=== PATIENT | female | born 1960 | race Caucasian/White ===

== ENCOUNTER → 2018-09-09 | Outpatient (CLI) | payer OTHER ==
[~2018-09-09] VITALS: Ht 162.6 cm; Wt 78.0 kg
[~2018-09-09] MED LIST: BICARSIM80 MG PO; ESTRACE0.5 MG; ESTRADERM1 EACH; HYDROCHLOROTHIA25 M2 PO; HYDROCODON-ACE1 EAC7 PO; NORVASC5 MG PO; POTASSIUM20 PO; TRAMADOL 50 MG50 MG PO
[2018-09-09 07:53] VITALS: BP 145/90
--- NOTE | 2018-09-09 08:13 | NUR ---
Pain Clinic Assessment: 1. History of Osteoarthritis: * Not Applicable History of Rheumatoid Arthritis: Not Applicable 2. Height: 5 ft. 4 in. 162.6 cm. Weight: 172.0 lb. oz. 78.019 kg. Patient's BMI: 29.5 3. Vital Signs: BP: 145/90 Pulse: 84 Resp: 16 Temp: 02 Sat: 95 ECG Mon: 4. Pain Intensity: 5 5. Fall Risk: Dizziness: N Needs help standing or walking: N Fallen in the last 3 months: N Fall risk comments: 6. Patient on Blood Thinner: None 7. History of Hypertension: Y 8. Opioid Therapy greater than 6 weeks: N Opiate Contract Signed: 9. Risk Assessment Tool Provided: LOW RISK 10. Functional Assessment Tool: 11. Recreational Drug Use: Unknown Drug Type: Tobacco Use: Never Smoker Tobacco Type: Amount or Packs/day: How Many Years: Alcohol Use: No Frequency: Quant:
--- NOTE | 2018-09-10 08:12 | HPC ---
[facility] [place] [address] PAIN MANAGEMENT CONSULTATION Name: DAWN HANKINS [facility] [id number] Admission: 09/09/18 ������������������ Attend Phys: Roderick Hahn DO Discharge: ������������������ Date of : 56 Report #: [id number] THIS REPORT FOR: //name// CC: Roderick Martin DATE OF SERVICE: 09/09/2018 CHIEF COMPLAINT: Neck pain, left upper extremity pain with paresthesias. HISTORY OF PRESENT ILLNESS: As you know, the patient is a very pleasant 57-year-old female with recurrent cervical radiculopathy involving the left neck radiating on the C8 dermatomal distribution into the left hand involving the fourth and fifth digits as well as typical distribution of the C8 dermatome. The patient denies any new injury or trauma that may have led to symptom reoccurrence. We saw the patient in consultation in 04/2013 for similar findings. She underwent a cervical epidural injection with excellent benefit noting year's worth of improvement in symptoms. She states her pain began to return approximately 2 months ago. She has undergone 1.5 months of physician-directed home physical therapy. She has tried wqbb-xtk-mqwpgfd medications such as Tylenol, topical creams, utilizing heat pads and cold packs with some improvement. Unfortunately, her pain did not improve significantly. She describes the pain as numbness, tingling, heavy and aching, places current pain score 5/10. Movement to the left as well as bending her neck to the left exacerbates symptoms. There does not appear to be any intrinsic shoulder pathology. She is able to move her shoulder in all directions, full range of motion. She returns today in followup visit to discuss possibility of treating cervical radiculopathy involving left upper extremity in a C8 dermatomal distribution. PAST MEDICAL HISTORY: 1. Postmenopausal symptoms. 2. Hypertension. PAST SURGICAL HISTORY: Uterine ablation in 2004, hysterectomy in 2010, radial keratotomy in 1991. SOCIAL HISTORY: The patient denies tobacco, IV or illicit drug use. Admits to occasional alcohol beverage. She is working, not receiving workmen's compensation nor is she trying to obtain disability benefits. She is unaccompanied at today's visit. REVIEW OF SYSTEMS: Positive for neck pain, left upper extremity pain with paresthesias, hot flashes, hypertension. All other review of systems negative per 12-point review of systems other than those listed in history of present illness. [address] [address] PAIN MANAGEMENT CONSULTATION Name: DAWN HANKINS Room #: REG CL Kimberlee#: [id number] Admission: 09/09/18 ������������������ Attend Phys: Roderick Hahn DO Discharge: ������������������ Date of : 56 Report #: [id number] Pain impact score 45 out of 70 indicating uflzvljb-gz-kffxgs interference of daily activities secondary to pain. IMAGING: There is no new imaging available. ALLERGIES: ERYTHROMYCIN. CURRENT MEDICATIONS: Potassium chloride 20 mEq once a day, amlodipine 5 mg once a day, hydrochlorothiazide 25 mg once a day. PHYSICAL EXAMINATION: VITAL SIGNS: Blood pressure 145/90, pulse 84, respiratory rate 16 and unlabored. The patient is 95% on room air. Height 5 feet 4 inches tall, weight 172 pounds, BMI calculated 29.5. GENERAL: Well-developed, well-nourished, well-hydrated, 57-year-old female, appearing stated age. Pain is rated today at around 5/10. HEENT: Normocephalic, atraumatic. Pupils equal, round, reactive to light. Extraocular muscles are intact. Sclerae nonicteric without injection. NEUROLOGIC: Cranial nerves 2 through 12 are grossly intact. Speech fluent. The patient deemed an excellent historian. LUNGS: Clear. No wheeze, rhonchi or rales. CARDIOVASCULAR: Regular. No appreciable gallop or rub. ABDOMEN: Soft, nontender, nondistended. EXTREMITIES: Show no clubbing, no cyanosis, no edema. MUSCULOSKELETAL: Upper extremity strength symmetrical 5/5, intact to light touch from C5 through T1 dermatomes. Deep tendon reflexes are symmetrical at biceps, brachialis and triceps. Spurling's test positive on the left, negative right. Cervical provocation testing is met with mypb-sm-jvnqxjka restriction of motion to the left with pain generation. Negative to the right. Lateral flexion to the left also causes intensification of pain, lateral flexion to the right with cervical spine. No intensification of pain. Muscle bulk and tone equal and symmetrical in upper extremities. ASSESSMENT: 1. Cervical radiculopathy. 2. Cervical spondylosis with radiculopathy. PLAN: 1. Based on today's physical exam and the history the patient has provided, the description the patient uses in regards to pain as well as location of symptoms, the likely source of the patient's pain is cervical radiculopathy. The distribution of the patient is experiencing today is in on what appears to be the C8 dermatome, which is very similar to her presentation in 04/2013. The patient denies injury or trauma or any changes in medical history that may have led to symptom reoccurrence. She states she has been more active of late, doing [facility] [address] [facility] [place] [address] PAIN MANAGEMENT CONSULTATION Name: DAWN HANKINS Room #: REG 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 She has trialled yfcb-ioq-khqzsuz medications in form of Tylenol and topical creams. She has trialled heat and cold compresses, rest, relaxation and even 1.5 months of physician-directed home therapy, but has not noted improvement in symptoms. Due to lack of improvement from a conservative standpoint, patient was referred to our clinic to discuss options for treatment for cervical radiculopathy. We discussed physical therapy, stretching exercises, core strengthening, though this has failed to date with the patient doing these on a daily basis at home. We discussed medication management, trialing neuropathic pain medications and a low dose opioid for pain control. We discussed cervical epidural injections under fluoroscopic guidance, spinal cord stimulator therapy and surgical options. After reviewing risks and benefits of all proposed treatment options, the patient chose to begin with preapproval for the cervical epidural injection, which worked significantly well from 2013 until just recently and to begin medication management. 2. The patient will be provided a prescription of tramadol 50 mg dose, 1 tab p.o. q. 8 hours p.r.n. for pain. I have given the patient #60 tablets. She will take this medication as directed. She is to watch for side effects of sleepiness, disorientation, confusion, mental slowing and constipation with their use. 3. We have provided the patient with samples of Lyrica 50 mg tablet, 1 tab p.o. at bedtime. She will take this for 7 days no improvement in symptoms, no side effects of sleepiness, disorientation, confusion, mental slowing. She then increases to 100 mg. She will watch for improvement in symptoms versus side effects. If she has significant side effects, discontinue immediately. We have provided the patient with samples today. 4. We will begin the authorization process for the patient to undergo cervical epidural injection under fluoroscopic guidance. Authorization could take anywhere from 4-7 working days. We will begin this process immediately. Once we have achieved this authorization, we will be contacting the patient to return to undergo first in this series of cervical epidural injections. We will begin this process immediately, contact the patient and have her return to undergo the procedure once we have achieved this preauthorization for cervical epidural injection. 5. We wish to thank the referring physician for the opportunity to see this patient in consultation. We will keep you apprised of her response to treatment as we address cervical radiculopathy involving the C8 [place] [address] PAIN MANAGEMENT CONSULTATION Name: DAWN HANKINS Room #: REG MARILIA Mohan#: [id number] Admission: 09/09/18 ������������������ Attend Phys: Roderick Hahn DO Discharge: ������������������ Date of : 56 Report #: [id number] Again, we wish to thank you for the opportunity to see this patient in consultation. ��������������������������������������������� <ELECTRONICALLY SIGNED> ���������������������������������������� By: Roderick Hahn DO ��������������������������������������������� 09/10/18 0812 0843 0925 Roderick Hahn DO /nt
== END ==
LOC: PAIN 08:00
DX: M47.22 Other spondylosis with radiculopathy, cervical region (principal); Z79.899 Other long term (current) drug therapy

== ENCOUNTER → 2018-09-16 | Outpatient (CLI) | payer OTHER ==
[~2018-09-16] VITALS: Ht 162.6 cm; Wt 78.0 kg
--- NOTE | ~2018-09-16 | HPC ---
[facility] [address] [place] [address] PAIN MANAGEMENT CONSULTATION Name: DAWN HANKINS Room #: REG [facility].#: [id number] Admission: 09/16/18 ������������������ Attend Phys: Roderick Hahn DO Discharge: ������������������ Date of : 56 Report #: [id number] THIS REPORT FOR: //name// CC: Roderick Martin MD DATE OF SERVICE: 09/16/2018 REFERRING PHYSICIAN: Garth Martin M.D. CHIEF COMPLAINT: Neck pain and left upper extremity pain with paresthesias. HISTORY OF PRESENT ILLNESS: As you know, the patient is a very pleasant 57-year-old female who has returned today in followup visit having received precertification to undergo cervical epidural injection under fluoroscopic guidance to address cervical radiculopathy involving the neck and left upper extremity. The patient is placing pain today at around 5/10. She describes the pain as numbness, tingling and heavy sensation with aching. She indicates pain is exacerbated with movement, certain positioning, improves with repositioning and previous cervical epidural injections. The patient's most recent cervical epidural injection was performed in 2013 with good and prolonged benefit. She returns today in followup visit having received precertification to undergo next in the series of cervical epidural injections to address recurrent cervical radicular symptoms. She denies new injury or trauma. ALLERGIES: ERYTHROMYCIN. CURRENT MEDICATIONS: Potassium chloride 20 mEq p.o. every day, amlodipine 5 mg per day and hydrochlorothiazide 25 mg per day. SOCIAL HISTORY: The patient denies tobacco, alcohol or IV or illicit drug use. She is working, not receiving workmen's compensation nor is trying to obtain disability benefits. Unaccompanied today. IMAGING DATA: No new imaging available. PHYSICAL EXAMINATION: VITAL SIGNS: Blood pressure 143/80, pulse is 72 and respiratory rate 18 and unlabored. The patient is 99% on room air. Height 5 feet 4 inches tall, weight 172 pounds and BMI calculated 29.5. GENERAL: Well-developed, well-nourished and well-hydrated 57-year-old female appearing stated age, pain is rated at 5/10. HEENT: Normocephalic and atraumatic. Pupils equal, round and reactive to light. EXTREMITIES: Show no clubbing, no cyanosis and no edema. [facility] [address] [place] [address] PAIN MANAGEMENT CONSULTATION Name: DAWN HANKINS Room #: REG [facility].[place].#: [id number] Admission: 09/16/18 ������������������ Attend Phys: Roderick Hahn DO Discharge: ������������������ Date of : 56 Report #: [id number] MUSCULOSKELETAL: Upper extremity strength is symmetrical 5/5. Muscle bulk and tone equal and symmetrical when comparing left upper extremity to right. Spurling's test positive left, negative right. Cervical provocation testing is met with increased pain with lateral flexion and rotation to the left. ASSESSMENT: 1. Cervical radiculopathy. 2. Cervical spondylosis with radiculopathy. PLAN: 1. The patient has returned today in followup visit having received precertification to undergo cervical epidural injection under fluoroscopic guidance. The patient and I did discuss at length the risks and benefits of the procedure. These risks include but are not necessarily limited to bleeding, bruising, infection, worsening pain, no relief of pain, also risk of temporary or permanent muscle weakness, temporary or permanent nerve damage, possible paralysis, post-dural puncture headache and . The patient states understood and wished to proceed. 2. No medication changes made at today's visit. The patient will continue current medical therapy as previously prescribed. 3. We will see the patient back in followup visit on an as needed basis for possible next in the series of cervical epidural injections under fluoroscopic guidance. PROCEDURE NOTE DESCRIPTION OF PROCEDURE: C7-T1 cervical epidural steroid injection under fluoroscopic guidance. After obtaining written consent, the patient was taken back to fluoroscopy suite, placed in prone position with separate pillows under chest and forehead to decrease cervical lordosis. Skin overlying cervical area then prepped and draped in aseptic fashion. C7-T1 cervical interspace identified by AP fluoroscopy. Skin and subcutaneous tissue overlying target site of injection anesthetized with 3 mL of 1% lidocaine. A 20-gauge 3-1/2 inch Tuohy needle advanced under fluoroscopic guidance towards the epidural space using a midline approach. Epidural space identified using loss of resistance to air technique. After negative aspiration for heme or cerebrospinal fluid, 1 mL of Omnipaque injected. A cervical epidurogram confirmed using both AP and oblique fluoroscopy. After negative aspiration for heme or cerebrospinal fluid, 5 mL of a solution containing 2 mL 40 mg per mL, 80 mg total triamcinolone and 3 mL of lidocaine 1% injected slowly. Needle retracted approximately half way, flushed with 1 mL of 1% lidocaine and then removed. Sterile bandage was placed over injection site. No new motor deficits present in the upper extremities following procedure. [facility] [address] [place] [address] PAIN MANAGEMENT CONSULTATION Name: DAWN HANKINS Room #: REG [facility]#: [id number] Admission: 09/16/18 ������������������ Attend Phys: Roderick Hahn DO Discharge: ������������������ Date of : 56 Report #: [id number] The patient tolerated procedure well, carefully escorted to recovery room in stable condition. No apparent complications. After meeting discharge criteria, the patient discharged home. ��������������������������������������������� ���������������������������������������� By: ��������������������������������������������� 0757 0815 Roderick Hahn DO /nt
[2018-09-16 07:43] VITALS: BP 143/80
--- NOTE | 2018-09-16 07:45 | NUR ---
Pain Clinic Assessment: 1. History of Osteoarthritis: * Not Applicable History of Rheumatoid Arthritis: Not Applicable 2. Height: 5 ft. 4 in. 162.6 cm. Weight: 172.0 lb. oz. 78.019 kg. Patient's BMI: 29.5 3. Vital Signs: BP: 143/80 Pulse: 72 Resp: 18 Temp: 02 Sat: 99 ECG Mon: 4. Pain Intensity: 5 5. Fall Risk: Dizziness: N Needs help standing or walking: N Fallen in the last 3 months: N Fall risk comments: 6. Patient on Blood Thinner: None 7. History of Hypertension: Y 8. Opioid Therapy greater than 6 weeks: N Opiate Contract Signed: 9. Risk Assessment Tool Provided: LOW RISK 10. Functional Assessment Tool: 11. Recreational Drug Use: Unknown Drug Type: Tobacco Use: Never Smoker Tobacco Type: Amount or Packs/day: How Many Years: Alcohol Use: No Frequency: Quant:
== END | disposition home or self-care (01) ==
LOC: PAIN 07:18
DX: M47.22 Other spondylosis with radiculopathy, cervical region (principal); G89.29 Other chronic pain; Z88.8 Allergy status to other drugs, medicaments and biological substances; Z79.899 Other long term (current) drug therapy; Z98.890 Other specified postprocedural states

== ENCOUNTER → 2018-12-03 | Outpatient (CLI) | payer OTHER ==
[~2018-12-03] VITALS: Ht 162.6 cm; Wt 78.5 kg
[2018-12-03 07:46] VITALS: BP 149/82
--- NOTE | 2018-12-03 07:49 | NUR ---
Pain Clinic Assessment: 1. History of Osteoarthritis: * Not Applicable History of Rheumatoid Arthritis: Not Applicable 2. Height: 5 ft. 4 in. 162.6 cm. Weight: 173.0 lb. oz. 78.472 kg. Patient's BMI: 29.7 3. Vital Signs: BP: 149/82 Pulse: 65 Resp: 16 Temp: 02 Sat: 99 ECG Mon: 4. Pain Intensity: 4 5. Fall Risk: Dizziness: N Needs help standing or walking: N Fallen in the last 3 months: N Fall risk comments: 6. Patient on Blood Thinner: None 7. History of Hypertension: Y 8. Opioid Therapy greater than 6 weeks: N Opiate Contract Signed: 9. Risk Assessment Tool Provided: LOW RISK 10. Functional Assessment Tool: 11. Recreational Drug Use: Unknown Drug Type: Tobacco Use: Never Smoker Tobacco Type: Amount or Packs/day: How Many Years: Alcohol Use: No Frequency: Quant:
--- NOTE | 2018-12-10 07:46 | HPC ---
[facility] [address] [place] [address] PAIN MANAGEMENT CONSULTATION Name: DAWN HANKINS Room #: REG [facility] M..#: [id number] Admission: 12/03/18 Attend Phys: Roderick Hahn DO Discharge: Date of : 56 Report #: [id number] THIS REPORT FOR: //name// CC: Roderick Martin DATE OF SERVICE: 12/03/2018 CHIEF COMPLAINT: Neck pain, left upper extremity pain with paresthesias. HISTORY OF PRESENT ILLNESS: As you know, the patient is a very pleasant 57-year-old female who returns today in followup visit with recurrent cervical radiculopathy. She is placing pain score around 4/10. She describes the pain as numbness, tingling and heavy aching sensation. Exacerbated with movement, certain positioning, and arm positioning, also with leaving her arm in an anatomical position at her side causes intensification of left arm pain. She returns today in followup visit to undergo next in the series of cervical epidural injections. She reports previous cervical epidural injection provided up to 50% improvement in overall pain. She returns with no injury, no trauma, requesting to undergo next in the series of cervical epidural injections. ALLERGIES: ERYTHROMYCIN. CURRENT MEDICATIONS: Tramadol 50 mg t.i.d. p.r.n., potassium chloride 20 mEq p.o. daily, amlodipine 5 mg per day, hydrochlorothiazide 25 mg per day. SOCIAL HISTORY: The patient denies tobacco, alcohol or IV illicit drug use. She is working, not receiving workmen's compensation, unaccompanied today. IMAGING: No new imaging is available. PHYSICAL EXAMINATION: VITAL SIGNS: Blood pressure is 149/82, pulse is 65, respiratory rate 16 and unlabored. The patient is 99% on room air. Height 5 feet 4 inches tall, weight 173 pounds, BMI calculated 29.7. GENERAL: Well-developed, well-nourished, well-hydrated 57-year-old female appearing stated age, pain is rated at around 4/10. HEENT: Normocephalic, atraumatic. Pupils are equal, round, reactive to light. EXTREMITIES: Show no clubbing, no cyanosis, and no edema. MUSCULOSKELETAL: Upper extremity strength remains symmetrical 5/5. Muscle bulk and tone equal and symmetrical in comparing left upper extremity to right. Spurling's test positive left. ASSESSMENT: 1. Cervical radiculopathy. [address] [address] PAIN MANAGEMENT CONSULTATION Name: DAWN HANKINS Room #: REG MARILIA GalloJose#: [id number] Admission: 12/03/18 Attend Phys: Roderick Hahn DO Discharge: Date of : 56 Report #: [id number] 2. Cervical spondylosis with radiculopathy. PLAN: 1. The patient returns today in followup visit, having reported greater than 50% improvement in overall pain with previous cervical epidural injection. She returns today in followup visit to undergo next in the series of cervical epidural injections in hopes of improving pain. She has been advised risks and benefits of the procedure, states understood, and wished to proceed. 2. No medication changes made at today's visit. The patient will continue current medical therapy as previously prescribed. 3. We will see the patient back in followup visit on an as needed basis for possible next in the series of cervical epidural injections. We did discuss that if she does not note significant improvement with today's cervical epidural injection, further imaging may be necessary. We would have to have the patient undergo a cervical MRI to obtain the information necessary if surgical options may be present. X-ray imaging will not provide the patient the information we need for further treatment. We will discuss this at followup visit. PROCEDURE NOTE DESCRIPTION OF PROCEDURE: C7-T1 cervical epidural steroid injection under fluoroscopic guidance. After obtaining written consent, the patient was taken back to fluoroscopy suite, placed in prone position with separate pillows under chest and forehead to decrease cervical lordosis. Skin overlying cervical area prepped and draped in aseptic fashion. The C7-T1 cervical interspace identified by AP fluoroscopy. Skin and subcutaneous tissue overlying target site of injection anesthetized with 3 mL of 1% lidocaine. A 20-gauge 3-1/2 inch Tuohy needle advanced under fluoroscopic guidance towards the epidural space using a midline approach. Epidural space identified using loss of resistance to air technique. After negative aspiration for heme or cerebrospinal fluid, 1 mL of Omnipaque injected. Cervical epidurogram confirmed using both AP and lateral fluoroscopy. After negative aspiration for heme or cerebrospinal fluid, 5 mL of a solution containing 2 mL 40 mg per mL, 80 mg total triamcinolone along with 3 mL of lidocaine 1% injected slowly. Needle then retracted approximately half way, flushed with 1 mL of 1% lidocaine and removed. Sterile bandage placed over injection site. No new motor deficits present in the upper extremity following procedure. The patient tolerated procedure well, carefully escorted to recovery room in [address] [address] PAIN MANAGEMENT CONSULTATION Name: DAWN HANKINS Room #: REG [facility]#: [id number] Admission: 12/03/18 Attend Phys: Roderick Hahn DO Discharge: Date of : 56 Report #: [id number] stable condition. No apparent complications. After meeting discharge criteria, the patient discharged home. <ELECTRONICALLY SIGNED> By: Roderick Hahn DO 12/10/18 0746 0826 0055 Roderick Hahn DO /nt
== END | disposition home or self-care (01) ==
LOC: PAIN 06:44
DX: M47.22 Other spondylosis with radiculopathy, cervical region (principal); G89.29 Other chronic pain; Z98.890 Other specified postprocedural states; Z88.8 Allergy status to other drugs, medicaments and biological substances; Z79.899 Other long term (current) drug therapy

== ENCOUNTER → 2019-12-10 | Outpatient (CLI) | payer OTHER ==
[~2019-12-10] VITALS: Ht 162.6 cm; Wt 81.8 kg
--- NOTE | ~2019-12-10 | HPC ---
[facility] [address] [place] [address] PAIN MANAGEMENT CONSULTATION Name: DAWN HANKINS Room #: REG [facility].#: [id number] Admission: 12/10/19 Attend Phys: Roderick Hahn DO Discharge: Date of : 56 Report #: [id number] CC: Roderick Martin DATE OF SERVICE: 12/10/2019 CHIEF COMPLAINT: Neck pain, bilateral upper extremity pain with paresthesias, left greater than right. HISTORY OF PRESENT ILLNESS: As you know, the patient is a very pleasant 59-year-old female who returns today in followup visit to undergo cervical epidural injection under fluoroscopic guidance to address recurrent cervical radicular symptoms. The patient reports previous cervical epidural injection gave 80% improvement in overall pain lasting for months. Unfortunately, her symptoms have begun to return. There has been no inciting injury or trauma. She returns today to undergo cervical epidural injection under fluoroscopic guidance to address cervical radiculopathy. ALLERGIES: ERYTHROMYCIN. CURRENT MEDICATIONS: Potassium chloride 20 mEq p.o. daily, amlodipine 5 mg per day, hydrochlorothiazide 25 mg per day. SOCIAL HISTORY: The patient denies tobacco, alcohol, IV or illicit drug use. She is working, not receiving workmen's compensation, unaccompanied today. IMAGING: No new imaging available. PHYSICAL EXAMINATION: VITAL SIGNS: Blood pressure 129/65, pulse 66, respiratory rate 16 and unlabored. The patient is 98% on room air. Height 5 feet 4 inches tall, weight 180.4 pounds, BMI calculated 31.0. GENERAL: Well-developed, well-nourished, well-hydrated 58-year-old female appearing stated age. Pain is rated anywhere from 4-7/10. HEENT: Normocephalic, atraumatic. Pupils equal, round and reactive. Speech is fluent. EXTREMITIES: Show no clubbing, no cyanosis. No appreciable edema. MUSCULOSKELETAL: Upper extremity strength equal and symmetrical 5/5. Muscle bulk and tone is symmetrical comparing left upper extremity to right. Spurling's test positive left, negative right. ASSESSMENT: 1. Cervical radiculopathy. 2. Cervical spondylosis with radiculopathy. 3. Chronic intractable pain. PLAN: 1. The patient returns today in followup visit requesting to undergo cervical epidural injection under fluoroscopic guidance to address cervical radicular symptoms. The patient and I discussed at length today the risks and the benefits of a cervical epidural injection. She states she understood and wished to proceed. 2. I would recommend the patient undergo further imaging of the cervical spine. It has been a long time since imaging has been done of her cervical region and this was only x-ray imaging. I do feel that further evaluation with MRI would be appropriate. I have written for MRI of the cervical spine without contrast to be obtained at her earliest convenience. We do recommend a delay of at least 2 weeks after the epidural injection, so that the medications injected will dissipate and not show on the MRI. She is agreeable. She was given this prescription to fill in approximately 2 weeks. Once this imaging has been obtained, we will contact the patient with the results. 3. No medication changes made at today's visit. The patient will continue current medical therapy as prior prescribed. 4. We will see the patient back in followup visit on an as needed basis for possible next in the series of cervical epidural injections. We are hopeful she will see good and prolonged benefit with today's procedure. PROCEDURE NOTE DESCRIPTION OF PROCEDURE: C7-T1 cervical epidural steroid injection under fluoroscopic guidance. After obtaining written consent, the patient was taken back to fluoroscopy suite, placed in prone position with separate pillows under chest and forehead to decrease cervical lordosis. Skin overlying the cervical area prepped and draped in aseptic fashion. C7-T1 cervical interspace identified by AP fluoroscopy. Skin and subcutaneous tissue overlying the target site of injection anesthetized with 3 mL of 1% lidocaine. A 20-gauge 3-1/2 inch Tuohy needle advanced under fluoroscopic guidance towards the epidural space using a left paramedian approach. Epidural space identified using loss of resistance to air technique. After negative aspiration for heme or cerebrospinal fluid, 1 mL of Omnipaque injected. A cervical epidurogram confirmed using both AP and oblique fluoroscopy. After negative aspiration for heme or cerebrospinal fluid, 5 mL of a solution containing 2 mL 40 mg per mL, 80 mg total triamcinolone along with 3 mL of lidocaine 1% injected slowly. Needle retracted senior living, flushed with 1 mL of 1% lidocaine and then removed. Sterile bandage placed over injection site. No new motor deficits present in the upper extremities following procedure. The patient tolerated the procedure well, carefully escorted to recovery room in stable condition. No apparent complications. After meeting discharge criteria, the patient discharged home. By: [id number] Roderick Hahn DO /bryan
[2019-12-10 14:59] VITALS: BP 129/65
--- NOTE | 2019-12-10 15:11 | NUR ---
Pain Clinic Assessment: 1. History of Osteoarthritis: * Not Applicable History of Rheumatoid Arthritis: Not Applicable 2. Height: 5 ft. 4 in. 162.6 cm. Weight: 180.4 lb. oz. 81.829 kg. Patient's BMI: 31.0 3. Vital Signs: BP: 129/65 Pulse: 66 Resp: 16 Temp: 02 Sat: 98 ECG Mon: 4. Pain Intensity: 4 AVG 6-7 WHEN BAD 5. Fall Risk: Dizziness: N Needs help standing or walking: N Fallen in the last 3 months: N Fall risk comments: 6. Patient on Blood Thinner: None 7. History of Hypertension: Y 8. Opioid Therapy greater than 6 weeks: N Opiate Contract Signed: 9. Risk Assessment Tool Provided: LOW RISK 10. Functional Assessment Tool: 11. Recreational Drug Use: Unknown Drug Type: Tobacco Use: Never Smoker Tobacco Type: Amount or Packs/day: How Many Years: Alcohol Use: No Frequency: Quant:
== END | disposition home or self-care (01) ==
LOC: PAIN 06:45
PROVIDERS: ATTEND Anesthesiology Pain Medicine
DX: M47.22 Other spondylosis with radiculopathy, cervical region (principal); G89.29 Other chronic pain; Z98.890 Other specified postprocedural states; Z79.899 Other long term (current) drug therapy; Z88.8 Allergy status to other drugs, medicaments and biological substances

== ENCOUNTER → 2019-12-29 | Outpatient (CLI) | payer OTHER | LOC: LAB 10:27 | PROVIDERS: ATTEND Family Medicine | DX: Z20.828 Contact with and (suspected) exposure to other viral communicable diseases (principal) ==

== ENCOUNTER → 2020-02-03 | Outpatient (CLI) | payer OTHER | LOC: MRI 09:09 | PROVIDERS: ATTEND Anesthesiology Pain Medicine | DX: M50.123 Cervical disc disorder at C6-C7 level with radiculopathy (principal); M48.02 Spinal stenosis, cervical region ==

== ENCOUNTER → 2020-02-17 | Outpatient (CLI) | payer OTHER | LOC: ULTRA 10:25 | PROVIDERS: ATTEND Anesthesiology Pain Medicine | DX: E04.1 Nontoxic single thyroid nodule (principal); E07.89 Other specified disorders of thyroid ==

== ENCOUNTER → 2020-03-12 | Outpatient (CLI) | payer OTHER ==
--- NOTE | 2020-03-16 16:06 | PATH ---
[facility] [place] [address] PATHOLOGY RPT PROCEDURE Name: DAWN HANKINS Room #: REG [facility].#: [id number] Admission: 03/12/20 Date of : 56 Discharge: Report #: [id number] Path Case #: [id number] Note [facility] Accession Number: [id number] TESTS RESULT FLAG UNITS REF RANGE LAB Clinician Provided Cytology Information No. of containers..01 Other (Miscellaneous) Source: RIGHT THYROID DIAGNOSIS: RIGHT THYROID, FINE NEEDLE ASPIRATION NEGATIVE FOR MALIGNANT EPITHELIAL CELLS. BETHESDA CATEGORY II. SPECIMEN CONSISTS OF GROUPS OF FOLLICULAR CELLS, HEMOSIDERIN-LADEN MACROPHAGES, COLLOID, AND HURTHLE CELLS. THIS PATTERN IS COMPATIBLE WITH A COLLOID NODULE. COLLOID IS PRESENT. THIS INTERPRETATION INCLUDES EVALUATION OF A CELL BLOCK. NEGATIVE FOR NUCLEAR FEATURES OF PAPILLARY THYROID CARCINOMA. Comment: Examination shows groups of thyroid follicular cells predominantly in macrofollicles in a background of mixed watery and dense colloid admixed with Hurthle cells and abundant macrophages. Findings are compatible with an colloid nodule. Nuclear features of papillary thyroid carcinoma are not identified. Please note sample may not be entirely inbound call center representative; correlate clinically and follow-up as indicated. [place]: Dr. Bailee Quinones. Pathologist ICD10: 02 E04.1 Signed out by: 02 Kaya Crawley MD, Pathologist NPI- [id number] Performed by: Anupama An, [employer] ([facility]) Gross description: 01 25ML, PINK, 3 FX 3 DQ /LCS 03/15/2020 0745 Local FLAG LEGEND: L-Low Normal,H-High Normal,LL-Alert Low,HH-Alert High <-Panic Low,>-Panic High,A-Abnormal,AA-Critical Abnormal Performed at: 01 [place] [facility] [address] [place] [address] Giovani Garrido MD, 02 [facility] [address] [address] PATHOLOGY RPT PROCEDURE Name: DAWN HANKINS Room #: REG [facility].#: [id number] Admission: 03/12/20 Date of : 56 Discharge: Report #: [id number] Path Case #: [id number] [address] [facility], [place] [address] Kaya Crawley MD, Specimen Comment: A courtesy copy of this report has been sent to [phone], [phone] Specimen Comment: [phone] Specimen Comment: Report sent to / DR GARRISON Specimen Comment: A duplicate report has been generated due to demographic updates. Performed at: 01 [facility] [address], [place], [place] [id number] MD Giovani Garrido MD Phone: [phone]
== END | disposition home or self-care (01) ==
LOC: ULTRA 09:20
PROVIDERS: ATTEND Anesthesiology Pain Medicine
DX: E04.1 Nontoxic single thyroid nodule (principal)

== ENCOUNTER → 2020-03-22 | Outpatient (CLI) | payer OTHER ==
[2020-03-22 08:38] LABS: ABSOLUTE NEUTROPHILS 3.5 thou/uL (1.4-8.2); BASOPHILS 0.7 % (0.0-2.0); EOSINOPHILS 0.8 % (0.0-3.0); HEMATOCRIT 42.4 % (37.0-47.0); HEMOGLOBIN 14.2 gm/dL (12.0-15.0); MCH 29.6 pg (26.0-34.0); MCHC 33.4 g/dL (28.0-37.0); MCV 88.5 fL (80.0-100.0); MONOCYTES 5.9 % (1.0-8.0); PLATELET COUNT 261 thou/uL (150-400); POLYS 58.6 % (36.0-66.0); RBC 4.79 mil/uL (4.20-5.00); RDW 15.1 % (10.5-14.5)
[2020-03-22 08:58] LABS: ALBUMIN 4.1 g/dL (3.4-5.0); ANION GAP 11 mmol/L (7-16); BUN 16 mg/dL (7-18); CALCIUM 9.6 mg/dL (8.5-10.1); CHLORIDE 98 mmol/L (98-107); CHOLESTEROL 249 mg/dL (<200); CO2 29 mmol/L (21-32); GLUCOSE 117 mg/dL (74-106); HDL CHOLESTEROL 55 mg/dL (>40); LDL CHOLESTEROL 157 mg/dL (<100); POTASSIUM 3.2 mmol/L (3.5-5.1); SGOT 23 U/L (15-37); SGPT 32 U/L (30-65); SODIUM 138 mmol/L (136-145); TC:HDL 4.5 Ratio (Not establshd); TOTAL BILIRUBIN 0.4 mg/dL (0.2-1.0); TRIGLYCERIDE 187 mg/dL (<150); VLDL 37 mg/dL (<40)
== END ==
LOC: LAB 07:49
PROVIDERS: ATTEND Family Medicine
DX: Z13.220 Encounter for screening for lipoid disorders (principal); E04.1 Nontoxic single thyroid nodule

== ENCOUNTER → 2020-06-09 | Outpatient (CLI) | payer OTHER ==
[2020-06-09 09:02] LABS: ANION GAP 9 mmol/L (7-16); BUN 10 mg/dL (7-18); CALCIUM 9.5 mg/dL (8.5-10.1); CHLORIDE 101 mmol/L (98-107); CO2 31 mmol/L (21-32); CREATININE 0.9 mg/dL (0.6-1.0); GLUCOSE 107 mg/dL (74-106); POTASSIUM 3.2 mmol/L (3.5-5.1); SODIUM 141 mmol/L (136-145)
[2020-06-09 09:35] LABS: CHOLESTEROL 255 mg/dL (<200); HDL CHOLESTEROL 48 mg/dL (>40); LDL CHOLESTEROL 155 mg/dL (<100); TC:HDL 5.3 Ratio (Not establshd); TRIGLYCERIDE 262 mg/dL (<150); VLDL 52 mg/dL (<40)
== END ==
LOC: LAB 08:20
PROVIDERS: ATTEND Family Medicine
DX: E78.5 Hyperlipidemia, unspecified (principal); E04.1 Nontoxic single thyroid nodule

== ENCOUNTER → 2020-08-31 | Outpatient (CLI) | payer OTHER ==
[2020-08-31 10:26] LABS: ALBUMIN 4.1 g/dL (3.4-5.0); ANION GAP 8 mmol/L (7-16); BUN 11 mg/dL (7-18); CALCIUM 9.4 mg/dL (8.5-10.1); CHLORIDE 102 mmol/L (98-107); CHOLESTEROL 217 mg/dL (<200); CO2 31 mmol/L (21-32); CREATININE 0.8 mg/dL (0.6-1.0); GLUCOSE 100 mg/dL (74-106); HDL CHOLESTEROL 46 mg/dL (>40); LDL CHOLESTEROL 137 mg/dL (<100); POTASSIUM 3.4 mmol/L (3.5-5.1); SGOT 18 U/L (15-37); SGPT 27 U/L (30-65); SODIUM 141 mmol/L (136-145); TC:HDL 4.7 Ratio (Not establshd); TOTAL BILIRUBIN 0.5 mg/dL (0.2-1.0); TOTAL PROTEIN 7.5 g/dL (6.4-8.2); TRIGLYCERIDE 173 mg/dL (<150); VLDL 35 mg/dL (<40)
== END ==
LOC: ULTRA 08:50
PROVIDERS: ATTEND Family Medicine
DX: E04.2 Nontoxic multinodular goiter (principal); E78.5 Hyperlipidemia, unspecified

== ENCOUNTER → 2020-09-20 | Outpatient (CLI) | payer OTHER | LOC: RAD 11:32 | PROVIDERS: ATTEND Family Medicine | DX: M25.461 Effusion, right knee (principal); M76.891 Other specified enthesopathies of right lower limb, excluding foot ==

== ENCOUNTER → 2020-10-22 | Outpatient (CLI) | payer OTHER | LOC: ULTRA 10:46 | PROVIDERS: ATTEND Family Medicine | DX: M71.21 Synovial cyst of popliteal space [Baker], right knee (principal); I82.401 Acute embolism and thrombosis of unspecified deep veins of right lower extremity ==

== ENCOUNTER → 2020-12-01 | Outpatient (CLI) | payer OTHER ==
[2020-12-01 10:39] LABS: BASOPHILS 0.7 % (0.0-2.0); EOSINOPHILS 1.3 % (0.0-3.0); HEMATOCRIT 39.6 % (37.0-47.0); HEMOGLOBIN 13.2 gm/dL (12.0-15.0); LYMPHOCYTES 38.7 % (24.0-44.0); MCH 28.2 pg (26.0-34.0); MCHC 33.3 g/dL (28.0-37.0); MCV 84.8 fL (80.0-100.0); MONOCYTES 5.4 % (1.0-8.0); PLATELET COUNT 200 thou/uL (150-400); POLYS 53.9 % (36.0-66.0); RBC 4.67 mil/uL (4.20-5.00); RDW 16.6 % (10.5-14.5); WBC 3.7 thou/uL (4.0-11.0)
[2020-12-01 11:21] LABS: ALBUMIN 3.8 g/dL (3.4-5.0); ANION GAP 10 mmol/L (7-16); BUN 10 mg/dL (7-18); CALCIUM 9.4 mg/dL (8.5-10.1); CHLORIDE 103 mmol/L (98-107); CHOLESTEROL 214 mg/dL (<200); CO2 29 mmol/L (21-32); CREATININE 0.8 mg/dL (0.6-1.0); GLUCOSE 100 mg/dL (74-106); HDL CHOLESTEROL 44 mg/dL (>40); LDL CHOLESTEROL 129 mg/dL (<100); POTASSIUM 3.4 mmol/L (3.5-5.1); SGOT 17 U/L (15-37); SGPT 26 U/L (30-65); SODIUM 142 mmol/L (136-145); TC:HDL 4.9 Ratio (Not establshd); TOTAL BILIRUBIN 0.4 mg/dL (0.2-1.0); TOTAL PROTEIN 7.3 g/dL (6.4-8.2); TRIGLYCERIDE 209 mg/dL (<150); VLDL 42 mg/dL (<40)
== END ==
LOC: LAB 08:37
PROVIDERS: ATTEND Family Medicine
DX: E03.9 Hypothyroidism, unspecified (principal); I10 Essential (primary) hypertension; E78.5 Hyperlipidemia, unspecified

== ENCOUNTER → 2021-02-22 | Outpatient (CLI) | payer OTHER ==
[2021-02-22 14:56] LABS: ABSOLUTE NEUTROPHILS 1.8 thou/uL (1.4-8.2); BASOPHILS 1.1 % (0.0-2.0); EOSINOPHILS 2.4 % (0.0-3.0); HEMATOCRIT 42.8 % (37.0-47.0); HEMOGLOBIN 14.1 gm/dL (12.0-15.0); LYMPHOCYTES 38.2 % (24.0-44.0); MCHC 32.9 g/dL (28.0-37.0); MCV 88.2 fL (80.0-100.0); MONOCYTES 8.7 % (1.0-8.0); PLATELET COUNT 197 thou/uL (150-400); POLYS 49.6 % (36.0-66.0); RBC 4.85 mil/uL (4.20-5.00); RDW 15.6 % (10.5-14.5); WBC 3.6 thou/uL (4.0-11.0)
[2021-02-22 15:16] LABS: CALCIUM 9.7 mg/dL (8.5-10.1); CREATININE 0.9 mg/dL (0.6-1.0); POTASSIUM 3.7 mmol/L (3.5-5.1)
== END ==
LOC: LAB 14:13
PROVIDERS: ATTEND Nurse Practitioner
DX: I10 Essential (primary) hypertension (principal)

== ENCOUNTER → 2021-02-23 | Outpatient (CLI) | payer OTHER ==
[~2021-02-23] MED LIST changes: +GYNODIOL0.5 MG PO; +LEVOTHYROXINE50 MCG PO; +VITAMIN D3125 MC2 PO
== END ==
LOC: RAD 10:42
PROVIDERS: ATTEND Family Medicine
DX: Z12.31 Encounter for screening mammogram for malignant neoplasm of breast (principal)

== ENCOUNTER → 2021-03-02 | Outpatient (CLI) | payer OTHER | LOC: RAD 15:01 → ULTRA 15:01 | PROVIDERS: ATTEND Family Medicine | DX: N63.10 Unspecified lump in the right breast, unspecified quadrant (principal); R92.8 Other abnormal and inconclusive findings on diagnostic imaging of breast ==

== ENCOUNTER → 2021-03-03 | Day surgery (SDC) | payer OTHER ==
[~2021-03-03] VITALS: Ht 162.6 cm; Wt 75.3 kg
[2021-03-03 07:30] VITALS: BP 147/83
--- NOTE | 2021-03-07 06:12 | O ---
[facility] [place] [address] [place] [address] OPERATIVE REPORT Name: DAWN HANKINS Room #: REG [facility].#: [id number] Admission: 03/03/21 Attend Phys: Eddie Santoro MD Discharge: Date of : 56 Report #: [id number] THIS REPORT FOR: cc: Garth Martin MD, Rene P. MD White,Eddie Johnson MD ~ cc: Jimmy Salvador MD, Garth Martin MD, Fili Gann MD DATE OF SERVICE: 03/03/2021 DATE OF PROCEDURE: 03/03/2021 SURGEON: Eddie Santoro MD TRANSIT COACH OPERATOR: None. PREOPERATIVE DIAGNOSIS: Bilateral upper lid dermatochalasia with superior visual field defect. POSTOPERATIVE DIAGNOSIS: Bilateral upper lid dermatochalasia with superior visual field defect. OPERATION PERFORMED: Bilateral upper lid functional blepharoplasty. ANESTHESIA: Local with IV sedation. COMPLICATIONS: None. INDICATIONS FOR SURGERY: This patient has acquired upper lid dermatochalasia with superior visual field loss both eyes because of excessive upper lid tissues to include skin and fat. Visual field testing demonstrates dense superior visual defects. Retesting with the upper lid elevated shows an improvement in visual field loss of over 30% and in excess of 12 degrees. The current procedures are undertaken in order to improve the patient's visual function. Informed consent was obtained to include but not limited to the loss of vision, bleeding, infection, scarring, failure to improve the problem and need for further surgery. DESCRIPTION OF OPERATION: The patient was taken to the operating room, where 2% Xylocaine with epinephrine mixed with equal parts of 0.75% Marcaine with Wydase was administered transcutaneously to each upper lid. The patient was then prepped and draped in the usual sterile fashion and a skin-marking pen was then utilized to outline an upper lid crease that was symmetrical on each side. Graefe forceps were then used to quantitate the redundant upper lid skin and it was similarly outlined. The incisions were then made with [place] scissors and [address] [address] OPERATIVE REPORT Name: DAWN HANKINS Room #: REG [facility]..#: [id number] Admission: 03/03/21 Attend Phys: Eddie Santoro MD Discharge: Date of : 56 Report #: [id number] a skin-muscle flap removed from each side with high-temp cautery. Hemostasis was achieved with the monopolar cautery as it was throughout the case. The orbital septum was then identified and the central and medial fat pads were inspected. The redundant soft tissue was then sculpted with the monopolar cautery. The upper lid crease was then reformed with tightening of the pretarsal orbicularis muscle. The upper lid crease was then further reformed with multiple interrupted 6-0 chromic sutures. The skin was then closed with a running 6-0 plain gut suture. The wound was then cleaned and dressed with ophthalmic antibiotic ointment and a nonstick dressing. The patient was transported to the recovery area, where cold compresses were applied, having tolerated the procedure well with no anesthetic or operative complications being noted. <ELECTRONICALLY SIGNED> By: Eddie Santoro MD 03/07/21 0612 0732 [id number] Eddie Santoro MD /nt
== END | disposition home or self-care (01) ==
LOC: OR 06:05
PROVIDERS: ATTEND Ophthalmology
DX: H02.834 Dermatochalasis of left upper eyelid (principal); H02.831 Dermatochalasis of right upper eyelid; H53.462 Homonymous bilateral field defects, left side; H53.461 Homonymous bilateral field defects, right side; Z12.31 Encounter for screening mammogram for malignant neoplasm of breast; N63.41 Unspecified lump in right breast, subareolar; Z98.890 Other specified postprocedural states; Z79.899 Other long term (current) drug therapy; Z20.822 Contact with and (suspected) exposure to COVID-19; Z85.828 Personal history of other malignant neoplasm of skin; Z90.710 Acquired absence of both cervix and uterus; Z88.8 Allergy status to other drugs, medicaments and biological substances
CPT/HCPCS: 50010; 50101; 50386; 50398; 51636; 56531; 62110; 62850; 70005

== ENCOUNTER → 2021-04-11 | Outpatient (CLI) | payer OTHER | LOC: LAB 11:34 | PROVIDERS: ATTEND Family Medicine | DX: I10 Essential (primary) hypertension (principal); E55.9 Vitamin D deficiency, unspecified ==